=== PATIENT | male | born 1960 | race Caucasian/White ===

== ENCOUNTER 2019-03-26 08:46 | Emergency (ER) | payer MEDICAID ==
[~2019-03-26] VITALS: Ht 175.3 cm; Wt 100.0 kg
[2019-03-26] MEDS ORDERED: methylPREDNISolone sod succ 125mg/2ml vial IV ONE (09:05)
[2019-03-26] MEDS ORDERED: ipratropium/albuterol 3ml nebule NEB ONE (09:05)
[2019-03-26] MEDS ORDERED: normal saline 1000ML IV soln IVB ONE (09:05)
[2019-03-26 09:34] LABS: BASOPHILS % (AUTO) 0.5 % (0-1); EOSINOPHILS # (AUTO) 0.1 X10'3 (0-0.9); EOSINOPHILS % (AUTO) 1.3 % (0-6); HEMATOCRIT 45.6 % (42.0-52.0); HEMOGLOBIN 15.2 g/dl (14.0-17.9); LYMPHOCYTES % (AUTO) 10.8 % (21-51); MEAN CORPUSCULAR HEMOGLOBIN 31.3 PG (27.0-31.0); MEAN CORPUSCULAR HGB CONC 33.4 g/dL (33.0-36.5); MEAN CORPUSCULAR VOLUME 93.8 FL (78-98); MEAN PLATELET VOLUME 9.1 FL (7.4-10.4); MONOCYTES # (AUTO) 0.8 X10'3 (0-0.9); MONOCYTES % (AUTO) 8.3 % (2-12); NEUTROPHILS # (AUTO) 7.3 X10'3 (1.8-7.7); NEUTROPHILS % (AUTO) 79.1 % (42-75); PLATELET COUNT 253 X10'3 (140-440); RED BLOOD COUNT 4.86 X10'6 (4.70-6.10); RED CELL DISTRIBUTION WIDTH 14.4 % (11.5-14.5); WHITE BLOOD COUNT 9.3 X10'3 (4.5-11.0)
[2019-03-26] MEDS ORDERED: PRED20TA PO (09:56)
[2019-03-26] MEDS ORDERED: AMOX-419 PO (09:56)
[2019-03-26] MEDS ORDERED: ALBU6.7H9 INH (09:56)
[2019-03-26] MEDS ORDERED: GUAI120015 PO (09:56)
[2019-03-26 10:07] VITALS: BP 177/118
[2019-03-26 10:11] LABS: ALANINE AMINOTRANSFERASE 228 U/L (12-78); ALBUMIN 3.2 G/DL (3.4-5.0); ALBUMIN/GLOBULIN RATIO 0.9 (1.1-1.5); ALKALINE PHOSPHATASE 72 IU/L (46-116); ANION GAP 9 (8-16); ASPARTATE AMINO TRANSFERASE 56 U/L (10-37); BILIRUBIN,TOTAL 0.4 MG/DL (0.1-1.0); BLOOD UREA NITROGEN 32 MG/DL (7-18); BUN/CREATININE RATIO 16.7 (5.4-32.0); CALCIUM 8.8 MG/DL (8.5-10.1); CHLORIDE 108 MMOL/L (99-107); CREATININE 1.92 MG/DL (0.60-1.10); GLUCOSE 124 MG/DL (70-104); POTASSIUM 4.2 MMOL/L (3.5-5.1); SODIUM 139 MMOL/L (135-145); TOTAL CARBON DIOXIDE 22.4 MMOL/L (24-32); TOTAL PROTEIN 6.6 G/DL (6.4-8.2); eGFR 36 ML/MIN
--- NOTE | 2019-03-26 10:13 | NUR ---
Discussed pt's asymptomatic elevated BP with TOÑO Wagner; no new orders received.
== END 2019-03-26 10:22 | disposition home or self-care (01) ==
LOC: ER 08:46
DX: J20.9 Acute bronchitis, unspecified (principal); I10 Essential (primary) hypertension; Z79.899 Other long term (current) drug therapy
CPT/HCPCS: 36415; 71046; 80053; 85025; 94640; 96374; 99284; J2930; J7030; 94760

== ENCOUNTER 2019-04-12 08:12 | Inpatient (IN) | payer MEDICAID ==
[~2019-04-12] VITALS: Ht 175.3 cm; Wt 99.5 kg
[~2019-04-12 08:12] MED LIST: ALBU6.7H9 INH; GUAI120015 PO
[2019-04-12 08:53] LABS: BASOPHILS # (AUTO) 0.1 X10'3 (0-0.2); BASOPHILS % (AUTO) 0.6 % (0-1); EOSINOPHILS # (AUTO) 0.2 X10'3 (0-0.9); EOSINOPHILS % (AUTO) 1.7 % (0-6); HEMATOCRIT 47.5 % (42.0-52.0); HEMOGLOBIN 15.7 g/dl (14.0-17.9); LYMPHOCYTES % (AUTO) 11.2 % (21-51); MEAN CORPUSCULAR HEMOGLOBIN 31.2 PG (27.0-31.0); MEAN CORPUSCULAR VOLUME 94.4 FL (78-98); MEAN PLATELET VOLUME 9.6 FL (7.4-10.4); MONOCYTES # (AUTO) 0.8 X10'3 (0-0.9); MONOCYTES % (AUTO) 8.9 % (2-12); NEUTROPHILS # (AUTO) 6.9 X10'3 (1.8-7.7); NEUTROPHILS % (AUTO) 77.6 % (42-75); PLATELET COUNT 186 X10'3 (140-440); RED BLOOD COUNT 5.04 X10'6 (4.70-6.10); RED CELL DISTRIBUTION WIDTH 14.7 % (11.5-14.5); WHITE BLOOD COUNT 8.9 X10'3 (4.5-11.0)
[2019-04-12 09:02] LABS: PARTIAL THROMBOPLASTIN TIME 25 SECONDS (22-32)
[2019-04-12 09:06] LABS: ALANINE AMINOTRANSFERASE 240 U/L (12-78); ALBUMIN 3.1 G/DL (3.4-5.0); ALKALINE PHOSPHATASE 85 IU/L (46-116); ANION GAP 10 (8-16); ASPARTATE AMINO TRANSFERASE 78 U/L (10-37); BILIRUBIN,TOTAL 0.3 MG/DL (0.1-1.0); BLOOD UREA NITROGEN 39 MG/DL (7-18); BUN/CREATININE RATIO 18.5 (5.4-32.0); CALCIUM 8.4 MG/DL (8.5-10.1); CHLORIDE 109 MMOL/L (99-107); CREATININE 2.11 MG/DL (0.60-1.10); GLUCOSE 114 MG/DL (70-104); POTASSIUM 4.1 MMOL/L (3.5-5.1); SODIUM 144 MMOL/L (135-145); TOTAL CARBON DIOXIDE 24.7 MMOL/L (24-32); TOTAL PROTEIN 6.2 G/DL (6.4-8.2); eGFR 32 ML/MIN
[2019-04-12] MEDS ORDERED: furosemide 40mg/4ml inj IV ONE (09:15)
[2019-04-12] MEDS ORDERED: ondansetron/PF 4mg/2ml inj IV PRN (10:10)
[2019-04-12] MEDS ORDERED: acetaminophen 325mg tablet PO PRN ×2 (10:10)
[2019-04-12] MEDS ORDERED: HYDROcodone/acetaminophen 5mg/325mg tablet PO PRN (10:10)
[2019-04-12] MEDS ORDERED: morphine 2 MG/ML inj. syringe IV PRN ×2 (10:10)
[2019-04-12] MEDS ORDERED: magnesium hydroxide 30ml (MOM) UD suspension PO PRN (10:10)
[2019-04-12] MEDS ORDERED: mag hydrox/Alum hydrox/simeth 30ml oral suspension PO PRN (10:10)
[2019-04-12] MEDS ORDERED: HYDROcodone/acetaminophen 10/325mg tab PO PRN (10:10)
[2019-04-12] MEDS ORDERED: enoxaparin 80mg/0.8ml syringe SUBCUT ONE (11:15)
[2019-04-12] MEDS ORDERED: enoxaparin 30mg/0.3ml syringe SUBCUT ONE (11:15)
[2019-04-12 11:43] LABS: URINE AMPHETAMINE SCREEN POSITIVE (Neg); URINE BARBITUATE SCREEN NEGATIVE (Neg); URINE BENZODIAZEPINES SCREEN NEGATIVE (Neg); URINE CANNABINOID SCREEN NEGATIVE (Neg); URINE COCAINE SCREEN NEGATIVE (Neg); URINE METHADONE SCREEN NEGATIVE (Neg); URINE OPIATE SCREEN NEGATIVE (Neg); URINE PHENCYCLIDINE SCREEN NEGATIVE (Neg)
[2019-04-12] MEDS ORDERED: NO HOME MEDS (12:35)
--- NOTE | 2019-04-12 13:21 | NUR ---
Received report from YAMILE Ramsey in ED. Awaiting arrival to room 3014B.
[2019-04-12 13:40] VITALS: BP 166/102
--- NOTE | 2019-04-12 13:40 | NUR ---
Patient arrived from ED via gurney to room 3014B. Patient was able to get up off gurmona to ambulate to his bed. Patient's vital signs are pain 0/10, temp. 98F, BP 166/109, HR 104, RR 16. MD notified of high BP that was taken manually. Bed locked and lowered, nonskid socks on, call light in reach and in no acute distress.
--- NOTE | 2019-04-12 14:03 | NUR ---
Paged Dr. Dey regarding patient's manual BP. PAGER ID: [phone] MESSAGE: [id number]. Eusebio Rader. Patient's BP manually was 162/102. Thank you. Senia OVALLE x [phone]
--- NOTE | 2019-04-12 18:37 | NUR ---
Problems reprioritized. Patient report given, questions answered & plan of care reviewed with YAMILE Kirby. Patient stable at transfer of care.
--- NOTE | 2019-04-12 18:38 | NUR ---
Patient in room PCU 3018. I have received report from Senia OVALLE and had the opportunity to ask questions and assume patient care.
[2019-04-12 19:00] VITALS: BP 167/116
[2019-04-12] MEDS ORDERED: carVEDilol 3.125mg tablet PO SCH (20:00)
[2019-04-12 23:00] VITALS: BP 170/108
[2019-04-12] MEDS ORDERED: carVEDilol 3.125mg tablet PO ONE (23:20)
--- NOTE | 2019-04-12 23:22 | NUR ---
Pt BP continuing to increase, got a one time coreg 3.125 order from the MD, will continue to monitor
--- NOTE | 2019-04-13 01:01 | NUR ---
pt had an 8 run episode of V tach, pt is asymptomatic denies any SOB, dizziness, chest pain. MD ordered for K and MG levels to be checked and replaced as needed. will continue to monitor pt
[2019-04-13 01:39] LABS: BASOPHILS # (AUTO) 0.1 X10'3 (0-0.2); BASOPHILS % (AUTO) 0.7 % (0-1); EOSINOPHILS # (AUTO) 0.2 X10'3 (0-0.9); EOSINOPHILS % (AUTO) 2.7 % (0-6); HEMATOCRIT 45.6 % (42.0-52.0); HEMOGLOBIN 15.3 g/dl (14.0-17.9); LYMPHOCYTES # (AUTO) 1.4 X10'3 (1.1-4.8); LYMPHOCYTES % (AUTO) 17.7 % (21-51); MEAN CORPUSCULAR HEMOGLOBIN 31.7 PG (27.0-31.0); MEAN CORPUSCULAR HGB CONC 33.7 g/dL (33.0-36.5); MEAN CORPUSCULAR VOLUME 94.2 FL (78-98); MEAN PLATELET VOLUME 9.6 FL (7.4-10.4); MONOCYTES # (AUTO) 0.6 X10'3 (0-0.9); MONOCYTES % (AUTO) 8.4 % (2-12); NEUTROPHILS # (AUTO) 5.4 X10'3 (1.8-7.7); NEUTROPHILS % (AUTO) 70.5 % (42-75); PLATELET COUNT 165 X10'3 (140-440); RED BLOOD COUNT 4.84 X10'6 (4.70-6.10); RED CELL DISTRIBUTION WIDTH 14.7 % (11.5-14.5); WHITE BLOOD COUNT 7.6 X10'3 (4.5-11.0)
[2019-04-13 01:49] LABS: ALBUMIN 2.7 G/DL (3.4-5.0); ANION GAP 11 (8-16); BLOOD UREA NITROGEN 36 MG/DL (7-18); BUN/CREATININE RATIO 18.3 (5.4-32.0); CALCIUM 8.4 MG/DL (8.5-10.1); CHLORIDE 108 MMOL/L (99-107); CREATININE 1.97 MG/DL (0.60-1.10); GLUCOSE 102 MG/DL (70-104); MAGNESIUM 1.5 MG/DL (1.5-2.4); POTASSIUM 4.1 MMOL/L (3.5-5.1); SODIUM 144 MMOL/L (135-145); TOTAL CARBON DIOXIDE 25.5 MMOL/L (24-32); eGFR 35 ML/MIN
[2019-04-13 03:00] VITALS: BP 163/101
[2019-04-13 06:00] VITALS: BP 140/94
--- NOTE | 2019-04-13 06:16 | NUR ---
Problems reprioritized. Patient report given, questions answered & plan of care reviewed with Deonna OVALLE.
[2019-04-13] MEDS ORDERED: lisinopril 10 MG tablet PO SCH (08:00)
[2019-04-13] MEDS: nitroGLYCERIN 0.4mg/hour patch TD SCH (08:02)
[2019-04-13] MEDS: lisinopril 10 MG tablet PO SCH ×2 (08:10→19:42)
[2019-04-13] MEDS ORDERED: pneumococcal 23-VAL P-sac vacc 25 mcg/0.5ml vial IMVAC ONE (10:00)
[2019-04-13] MEDS ORDERED: FLU VACC QS2019-20 36MOS UP/PF 60 MCG/0.5 ML SYRINGE IMVAC ONE (10:00)
[2019-04-13 11:00] VITALS: BP 92/66
[2019-04-13] MEDS: furosemide 40mg/4ml inj IV SCH ×2 (11:28→16:32)
[2019-04-13 15:00] VITALS: BP 155/109
--- NOTE | 2019-04-13 15:02 | NUR ---
PAGER ID: [phone] MESSAGE: [id number] Rader PaulaGary Had 10 beat run of V-tach. No chest pain, no lightheadedness. Only complaint is SOB. BP 155/109 MAP 123. SaO2 96%. Sandro U [id number]
[2019-04-13 18:00] VITALS: BP 163/104
--- NOTE | 2019-04-13 18:20 | NUR ---
Patient states that he is Full Code not DNR. Patient is alert and oriented x4 and he makes all decisions regarding his health; charge nurse Cornel has been informed.
--- NOTE | 2019-04-13 18:20 | NUR ---
Patient in room PCU 3018B. I have received report from YAMILE Jo and had the opportunity to ask questions and assume patient care. Patient denies CP, dizziness, SOB, n/v, and rated pain 0/10.
[2019-04-13] MEDS: carVEDilol 12.5mg tablet PO SCH (19:41)
[2019-04-13 22:00] VITALS: BP 147/90
[2019-04-14] MEDS: furosemide 40mg/4ml inj IV SCH ×4 (01:38→23:50)
[2019-04-14 02:00] VITALS: BP 158/97
[2019-04-14 06:00] VITALS: BP 147/97
--- NOTE | 2019-04-14 06:18 | NUR ---
Problems reprioritized. Patient report given, questions answered & plan of care reviewed with YAMILE Jo. I informed Dr. Dey last nigh of patient's code change from DNR to Full code. Per Dr. Dey request I informed YAMILE Jo. Patient stable at shift change
--- NOTE | 2019-04-14 06:35 | NUR ---
Patient in room PCU 3018. I have received report from Valdez OVALLE and had the opportunity to ask questions and assume patient care. Valdez informed me about a code status change which I discussed with the patient during my first rounds as he was already awake. Per pt. his daughter was upset when he had informed her of his original decision to be DNR so now he would like to be a FULL code. I counseled the pt. on his code status choices and told him that the decision needs to be his. He says that he believes he's lived a good life and that is why he chose a DNR to begin with, but that he has made his decision to be a FULL code to give his daughter a chance. I will inform the day hospitalist of this conversation.
[2019-04-14 06:51] LABS: BASOPHILS # (AUTO) 0.1 X10'3 (0-0.2); BASOPHILS % (AUTO) 0.6 % (0-1); EOSINOPHILS # (AUTO) 0.2 X10'3 (0-0.9); EOSINOPHILS % (AUTO) 2.4 % (0-6); HEMATOCRIT 47.6 % (42.0-52.0); LYMPHOCYTES # (AUTO) 0.9 X10'3 (1.1-4.8); LYMPHOCYTES % (AUTO) 10.1 % (21-51); MEAN CORPUSCULAR HEMOGLOBIN 31.1 PG (27.0-31.0); MEAN CORPUSCULAR HGB CONC 33.5 g/dL (33.0-36.5); MEAN CORPUSCULAR VOLUME 92.6 FL (78-98); MEAN PLATELET VOLUME 9.8 FL (7.4-10.4); MONOCYTES # (AUTO) 0.8 X10'3 (0-0.9); MONOCYTES % (AUTO) 9.1 % (2-12); NEUTROPHILS # (AUTO) 7.2 X10'3 (1.8-7.7); NEUTROPHILS % (AUTO) 77.8 % (42-75); PLATELET COUNT 190 X10'3 (140-440); RED BLOOD COUNT 5.14 X10'6 (4.70-6.10); RED CELL DISTRIBUTION WIDTH 14.3 % (11.5-14.5); WHITE BLOOD COUNT 9.2 X10'3 (4.5-11.0)
[2019-04-14 07:08] LABS: ALBUMIN 2.8 G/DL (3.4-5.0); ANION GAP 8 (8-16); BLOOD UREA NITROGEN 36 MG/DL (7-18); BUN/CREATININE RATIO 17.4 (5.4-32.0); CALCIUM 8.5 MG/DL (8.5-10.1); CHLORIDE 104 MMOL/L (99-107); CREATININE 2.07 MG/DL (0.60-1.10); GLUCOSE 147 MG/DL (70-104); POTASSIUM 3.6 MMOL/L (3.5-5.1); SODIUM 145 MMOL/L (135-145); TOTAL CARBON DIOXIDE 33.2 MMOL/L (24-32); eGFR 33 ML/MIN
[2019-04-14 07:46] LABS: MAGNESIUM 1.5 MG/DL (1.5-2.4)
--- NOTE | 2019-04-14 08:07 | NUR ---
PAGER ID: [phone] MESSAGE: [id number] Paula Rader. Had 7 beat run of V-tach. Electrolytes within normal limits. Has had 3 other episodes of V-tach runs the past 48hrs. Patient asymptomatic each time. Wants to change code status to FULL. Sandro [id number]
[2019-04-14] MEDS: lisinopril 10 MG tablet PO SCH ×2 (08:15→20:29)
[2019-04-14] MEDS: carVEDilol 12.5mg tablet PO SCH ×2 (08:16→20:28)
[2019-04-14] MEDS: nitroGLYCERIN 0.4mg/hour patch TD SCH (08:16)
--- NOTE | 2019-04-14 10:57 | NUR ---
PAGER ID: [phone] MESSAGE: [id number] Sancho Rader code status changed to FULL. Pls. advise. Sandro [facility] [id number]
[2019-04-14 11:00] VITALS: BP 114/75
[2019-04-14 15:00] VITALS: BP 159/93
--- NOTE | 2019-04-14 15:40 | NUR ---
Called Hilda Summers from [facility]. Obtained required documentation and faxed to provided fax number. Per Hilda, life vest should be ready by 04/16/19Tuesday, maybe even as early as tomorrow. Documents placed in chart.
--- NOTE | 2019-04-14 18:42 | NUR ---
Problems reprioritized. Patient report given, questions answered & plan of care reviewed with Trisha OVALLE.
[2019-04-14 19:00] VITALS: BP 135/102
[2019-04-14 23:00] VITALS: BP 154/104
[2019-04-15 03:00] VITALS: BP 154/107
[2019-04-15 06:15] LABS: BASOPHILS # (AUTO) 0.1 X10'3 (0-0.2); BASOPHILS % (AUTO) 0.7 % (0-1); EOSINOPHILS # (AUTO) 0.3 X10'3 (0-0.9); EOSINOPHILS % (AUTO) 3.3 % (0-6); HEMATOCRIT 50.9 % (42.0-52.0); HEMOGLOBIN 17.4 g/dl (14.0-17.9); LYMPHOCYTES # (AUTO) 1.3 X10'3 (1.1-4.8); LYMPHOCYTES % (AUTO) 15.2 % (21-51); MEAN CORPUSCULAR HGB CONC 34.2 g/dL (33.0-36.5); MEAN CORPUSCULAR VOLUME 93.6 FL (78-98); MEAN PLATELET VOLUME 9.1 FL (7.4-10.4); MONOCYTES # (AUTO) 1.3 X10'3 (0-0.9); MONOCYTES % (AUTO) 14.8 % (2-12); NEUTROPHILS # (AUTO) 5.6 X10'3 (1.8-7.7); PLATELET COUNT 197 X10'3 (140-440); RED BLOOD COUNT 5.44 X10'6 (4.70-6.10); RED CELL DISTRIBUTION WIDTH 14.1 % (11.5-14.5); WHITE BLOOD COUNT 8.5 X10'3 (4.5-11.0)
--- NOTE | 2019-04-15 06:25 | NUR ---
Patient in room PCU 3018. I have received report from Trisha OVALLE and had the opportunity to ask questions and assume patient care.
[2019-04-15 06:30] VITALS: BP 148/98
[2019-04-15 06:35] LABS: ALBUMIN 2.9 G/DL (3.4-5.0); ANION GAP 6 (8-16); BLOOD UREA NITROGEN 34 MG/DL (7-18); BUN/CREATININE RATIO 17.1 (5.4-32.0); CALCIUM 8.9 MG/DL (8.5-10.1); CHLORIDE 104 MMOL/L (99-107); CREATININE 1.99 MG/DL (0.60-1.10); GLUCOSE 110 MG/DL (70-104); POTASSIUM 3.7 MMOL/L (3.5-5.1); SODIUM 147 MMOL/L (135-145); TOTAL CARBON DIOXIDE 37.2 MMOL/L (24-32); eGFR 34 ML/MIN
[2019-04-15] MEDS: carVEDilol 12.5mg tablet PO SCH (07:53)
[2019-04-15] MEDS: lisinopril 10 MG tablet PO SCH (07:54)
[2019-04-15] MEDS: furosemide 40mg/4ml inj IV SCH (07:54)
[2019-04-15] MEDS: nitroGLYCERIN 0.4mg/hour patch TD SCH (08:00)
[2019-04-15 11:00] VITALS: BP 135/81
[2019-04-15] MEDS ORDERED: FURO40TA4 PO (13:24)
[2019-04-15] MEDS ORDERED: CARV-50 PO (13:24)
[2019-04-15] MEDS ORDERED: NITR0.4T51 SL (13:24)
[2019-04-15] MEDS ORDERED: LISI10TA4 PO (13:24)
--- NOTE | 2019-04-15 14:18 | NUR ---
Patient was cleared to discharge home. MD made aware that the patient does not have a primary physician or a sandwich counter attendant following for f/u appointment. MD stated the patient needed to find a primary for a referral to a sandwich counter attendant. 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 MD stated he does not need a life vest. PIV and tele DC'd. Patient verbalized understanding regarding discharge instructions and sobriety. Patient denies dyspnea and ambulated around the room without dyspnea. Patient left in stable condition.
--- NOTE | 2019-04-15 14:35 | NUR ---
Patient called stating that their pharmacy is closed. All prescriptions called into [facility] on [address].
[2019-04-15] MEDS ORDERED: lisinopril 10 MG tablet PO SCH (20:00)
[2019-04-15] MEDS ORDERED: carVEDilol 12.5mg tablet PO SCH (20:00)
--- NOTE | 2019-04-17 16:22 | NUR ---
Case management discharge phone call follow up Left voicemail to please return call [phone]
== END 2019-04-15 14:01 | disposition home or self-care (01) | DRG 194 ==
LOC: ER 08:13 → ED HOLD 10:10 → PCU 3S 13:40
PROVIDERS: ADMIT Internal Medicine; ATTEND Internal Medicine
PROC: 3E02340 Introduction of Influenza Vaccine into Muscle, Percutaneous Approach (ICD-10-PCS; principal; 2019-04-13)
PROC: 3E0234Z Introduction of Serum, Toxoid and Vaccine into Muscle, Percutaneous Approach (ICD-10-PCS; 2019-04-13)
DX: I50.23 Acute on chronic systolic (congestive) heart failure (principal); N17.9 Acute kidney failure, unspecified; I27.20 Pulmonary hypertension, unspecified; N18.3 Chronic kidney disease, stage 3 (moderate); F15.90 Other stimulant use, unspecified, uncomplicated; F12.90 Cannabis use, unspecified, uncomplicated; R74.0 Nonspecific elevation of levels of transaminase and lactic acid dehydrogenase [LDH]; R03.0 Elevated blood-pressure reading, without diagnosis of hypertension; Z66 Do not resuscitate; Z83.3 Family history of diabetes mellitus; Z87.891 Personal history of nicotine dependence; Z23 Encounter for immunization; Z59.0 Homelessness; Z71.51 Drug abuse counseling and surveillance of drug abuser
CPT/HCPCS: 36415; 71045; 80048; 80053; 80305; 82948; 83735; 83880; 84132; 84484; 85025; 85610; 85730; 87081; 90732; 93005; 93306; 96374; 99285; G0378; J1650; J1940; Q2037

== ENCOUNTER 2020-02-12 17:13 | Inpatient (IN) | payer MEDICAID ==
[~2020-02-12] VITALS: Ht 175.3 cm; Wt 91.2 kg
[~2020-02-12 17:13] MED LIST changes: -ALBU6.7H9 INH; +CARV-50 PO; -GUAI120015 PO; +LISI10TA4 PO
[2020-02-12] MEDS ORDERED: furosemide 10 MG/1 ML 10ml inj IV ONE (17:30)
[2020-02-12] MEDS ORDERED: aspirin 81mg tab.chew PO ONE (17:30)
[2020-02-12] MEDS ORDERED: nitroGLYCERIN 0.4mg SUBLingual tab SL PRN (17:30)
[2020-02-12 17:49] LABS: BASOPHILS % (AUTO) 0.3 % (0-1); EOSINOPHILS # (AUTO) 0.2 X10'3 (0-0.9); EOSINOPHILS % (AUTO) 1.7 % (0-6); HEMATOCRIT 45.3 % (42.0-52.0); HEMOGLOBIN 14.8 g/dl (14.0-17.9); LYMPHOCYTES % (AUTO) 10.4 % (21-51); MEAN CORPUSCULAR HGB CONC 32.8 g/dL (33.0-36.5); MEAN CORPUSCULAR VOLUME 97.6 FL (78-98); MEAN PLATELET VOLUME 8.6 FL (7.4-10.4); MONOCYTES # (AUTO) 0.6 X10'3 (0-0.9); MONOCYTES % (AUTO) 6.4 % (2-12); NEUTROPHILS # (AUTO) 7.5 X10'3 (1.8-7.7); NEUTROPHILS % (AUTO) 81.2 % (42-75); PLATELET COUNT 315 X10'3 (140-440); RED BLOOD COUNT 4.64 X10'6 (4.70-6.10); RED CELL DISTRIBUTION WIDTH 13.7 % (11.5-14.5); WHITE BLOOD COUNT 9.2 X10'3 (4.5-11.0)
[2020-02-12 18:06] LABS: D-DIMER 0.78 MG/L FEU (0-0.50)
[2020-02-12 18:09] LABS: ALANINE AMINOTRANSFERASE 46 U/L (12-78); ALBUMIN 2.6 G/DL (3.4-5.0); ALBUMIN/GLOBULIN RATIO 0.7 (1.1-1.5); ALKALINE PHOSPHATASE 86 IU/L (46-116); ANION GAP 8 (8-16); ASPARTATE AMINO TRANSFERASE 21 U/L (10-37); BILIRUBIN,TOTAL 0.4 MG/DL (0.1-1.0); BLOOD UREA NITROGEN 28 MG/DL (7-18); BUN/CREATININE RATIO 13.6 (5.4-32.0); CALCIUM 8.6 MG/DL (8.5-10.1); CHLORIDE 108 MMOL/L (99-107); CREATININE 2.06 MG/DL (0.60-1.10); GLUCOSE 151 MG/DL (70-104); POTASSIUM 4.4 MMOL/L (3.5-5.1); SODIUM 144 MMOL/L (135-145); TOTAL CARBON DIOXIDE 27.6 MMOL/L (24-32); TOTAL PROTEIN 6.6 G/DL (6.4-8.2); eGFR 33 ML/MIN
[2020-02-12] MEDS ORDERED: nitroGLYCERIN 1gm ointment UD TP ONE (18:35)
[2020-02-12] MEDS ORDERED: heparin 10,000 units/1 ML INJ IV ONE ×2 (18:35→18:50)
[2020-02-12] MEDS ORDERED: CefTRIAXone 2gm/D5W 50ml BAG 50 ML IV ONE (18:50)
[2020-02-12] MEDS ORDERED: azithromycin/NS 500mg/250ml 250 ML IV ONE (18:50)
--- NOTE | 2020-02-12 18:59 | NUR ---
pt resting in bed, vitals taken
[2020-02-12] MEDS: heparin 25,000 UNIT/250ml bag 250 ML IV SCH (19:11)
[2020-02-12] MEDS ORDERED: bisacodyl 10mg suppository rectal RC PRN (19:15)
[2020-02-12] MEDS ORDERED: HYDROcodone/acetaminophen 5mg/325mg tablet PO PRN (19:15)
[2020-02-12] MEDS ORDERED: magnesium 4gm in 100ml NS 100 ML IV PRN (19:15)
[2020-02-12] MEDS ORDERED: mag hydrox/Alum hydrox/simeth 30ml oral suspension PO PRN (19:15)
[2020-02-12] MEDS ORDERED: heparin 10,000 units/1 ML INJ IV PRN (19:15)
[2020-02-12] MEDS ORDERED: magnesium 2GM in 50ml NS 50 ML IV PRN (19:15)
[2020-02-12] MEDS ORDERED: magnesium hydroxide 30ml (MOM) UD suspension PO PRN (19:15)
[2020-02-12] MEDS ORDERED: ondansetron/PF 4mg/2ml inj IV PRN (19:15)
[2020-02-12] MEDS ORDERED: acetaminophen 325mg tablet PO PRN (19:15)
[2020-02-12] MEDS ORDERED: potassium CL 10mEq/100ml bag 100 ML IV PRN ×2 (19:15)
[2020-02-12] MEDS ORDERED: potassium Cl 20 mEq SR tablet PO PRN ×2 (19:15)
[2020-02-12] MEDS ORDERED: magnesium Cl slow-release 64mg tablet PO PRN (19:15)
[2020-02-12] MEDS ORDERED: heparin 25,000 UNIT/250ml bag 250 ML IV SCH (19:15)
[2020-02-12 19:32] LABS: CLARITY,URINE CLEAR (Clear); COLOR,URINE YELLOW (Yellow); GLUCOSE, URINE NEGATIVE (Neg); KETONES,URINE NEGATIVE (Neg); LEUKOCYTE ESTERASE ,URINE NEGATIVE (Neg); NITRITES, URINE NEGATIVE (Neg); OCCULT BLOOD,URINE NEGATIVE (Neg); PH,URINE 5.5 (4.8-8.0); PROTEIN,URINE NEGATIVE (Neg); UROBILINOGEN,URINE 0.2 E.U/dL (0.2-1.0)
[2020-02-12 19:33] LABS: UA COLLECTION TYPE CLN CATCH MIDSTREAM
[2020-02-12] MEDS ORDERED: NO HOME MEDS (19:36)
[2020-02-12 19:50] LABS: URINE AMPHETAMINE SCREEN NEGATIVE (Neg); URINE BARBITUATE SCREEN NEGATIVE (Neg); URINE BENZODIAZEPINES SCREEN NEGATIVE (Neg); URINE CANNABINOID SCREEN NEGATIVE (Neg); URINE COCAINE SCREEN NEGATIVE (Neg); URINE METHADONE SCREEN NEGATIVE (Neg); URINE OPIATE SCREEN NEGATIVE (Neg); URINE PHENCYCLIDINE SCREEN NEGATIVE (Neg)
--- NOTE | 2020-02-12 20:10 | NUR ---
Received report from YAMILE Schmidt. Awaiting patient arrival to the unit.
[2020-02-12 20:35] VITALS: BP 151/104
[2020-02-12] MEDS: K and/or MAG REPLACEMENT MC SCH (21:25)
[2020-02-12 22:00] VITALS: BP 132/87
[2020-02-13 02:00] VITALS: BP 134/84
[2020-02-13] MEDS: heparin 10,000 units/1 ML INJ IV PRN ×2 (02:02→16:23)
[2020-02-13] MEDS: heparin 25,000 UNIT/250ml bag 250 ML IV SCH ×2 (02:03→16:21)
--- NOTE | 2020-02-13 06:14 | NUR ---
Problems reprioritized. Patient report given, questions answered & plan of care reviewed with YAMILE Garcia.
[2020-02-13 06:23] LABS: BASOPHILS % (AUTO) 0.5 % (0-1); EOSINOPHILS # (AUTO) 0.2 X10'3 (0-0.9); EOSINOPHILS % (AUTO) 2.6 % (0-6); HEMOGLOBIN 14.2 g/dl (14.0-17.9); LYMPHOCYTES # (AUTO) 1.4 X10'3 (1.1-4.8); LYMPHOCYTES % (AUTO) 16.4 % (21-51); MEAN CORPUSCULAR HEMOGLOBIN 31.5 PG (27.0-31.0); MEAN CORPUSCULAR HGB CONC 32.9 g/dL (33.0-36.5); MEAN CORPUSCULAR VOLUME 95.7 FL (78-98); MEAN PLATELET VOLUME 8.7 FL (7.4-10.4); MONOCYTES # (AUTO) 0.6 X10'3 (0-0.9); MONOCYTES % (AUTO) 7.8 % (2-12); NEUTROPHILS % (AUTO) 72.7 % (42-75); PLATELET COUNT 250 X10'3 (140-440); RED CELL DISTRIBUTION WIDTH 13.6 % (11.5-14.5); WHITE BLOOD COUNT 8.3 X10'3 (4.5-11.0)
[2020-02-13 06:31] LABS: ALANINE AMINOTRANSFERASE 39 U/L (12-78); ALBUMIN 2.5 G/DL (3.4-5.0); ALBUMIN/GLOBULIN RATIO 0.7 (1.1-1.5); ALKALINE PHOSPHATASE 55 IU/L (46-116); ANION GAP 8 (8-16); ASPARTATE AMINO TRANSFERASE 19 U/L (10-37); BILIRUBIN,TOTAL 0.4 MG/DL (0.1-1.0); BLOOD UREA NITROGEN 26 MG/DL (7-18); CALCIUM 8.8 MG/DL (8.5-10.1); CHLORIDE 109 MMOL/L (99-107); CREATININE 1.86 MG/DL (0.60-1.10); GLUCOSE 113 MG/DL (70-104); POTASSIUM 3.9 MMOL/L (3.5-5.1); SODIUM 144 MMOL/L (135-145); TOTAL CARBON DIOXIDE 26.8 MMOL/L (24-32); eGFR 37 ML/MIN
[2020-02-13 06:34] LABS: MAGNESIUM 1.6 MG/DL (1.5-2.4)
[2020-02-13 07:30] VITALS: BP 154/100
[2020-02-13] MEDS: K and/or MAG REPLACEMENT MC SCH ×2 (08:00→20:00)
[2020-02-13] MEDS: CefTRIAXone/D5W-Rocephin 1gm 50 ML IV SCH (08:13)
[2020-02-13] MEDS: furosemide 40mg/4ml inj IV SCH ×2 (08:13→21:39)
[2020-02-13] MEDS ORDERED: FLU VACC QS2020-21(6MOS UP)/PF 60 MCG/0.5 ML SYRINGE IMVAC ONE (10:00)
[2020-02-13] MEDS: azithromycin/NS 500mg/250ml 250 ML IV SCH (10:49)
[2020-02-13 11:30] VITALS: BP 128/79
[2020-02-13 12:32] LABS: CHOL/HDL RATIO 3.4 (0.00-4.99); CHOLESTEROL 165 MG/DL (0-200); HDL CHOLESTEROL 48 MG/DL (35-60); LDL CHOLESTEROL 111 MG/DL (50-100); TRIGLYCERIDES 82 MG/DL (20-135)
[2020-02-13 15:10] VITALS: BP 128/76
[2020-02-13 18:00] VITALS: BP 132/74
--- NOTE | 2020-02-13 18:30 | NUR ---
Problems reprioritized. Patient report given, questions answered & plan of care reviewed with Abby RN.
[2020-02-13] MEDS: metoprolol tartrate 12.5mg (1/2 tablet) PO SCH (21:38)
[2020-02-13 22:00] VITALS: BP 148/106
[2020-02-14 02:00] VITALS: BP 142/96
--- NOTE | 2020-02-14 03:00 | NUR ---
Notified of run of V tach. patient resting with no c/o chest pain.
[2020-02-14 06:00] VITALS: BP 120/81
[2020-02-14 06:23] LABS: BASOPHILS # (AUTO) 0.1 X10'3 (0-0.2); BASOPHILS % (AUTO) 0.7 % (0-1); EOSINOPHILS # (AUTO) 0.2 X10'3 (0-0.9); EOSINOPHILS % (AUTO) 2.7 % (0-6); HEMATOCRIT 45.1 % (42.0-52.0); HEMOGLOBIN 14.9 g/dl (14.0-17.9); LYMPHOCYTES # (AUTO) 1.7 X10'3 (1.1-4.8); LYMPHOCYTES % (AUTO) 20.5 % (21-51); MEAN CORPUSCULAR HEMOGLOBIN 31.4 PG (27.0-31.0); MEAN CORPUSCULAR HGB CONC 33.1 g/dL (33.0-36.5); MEAN CORPUSCULAR VOLUME 94.9 FL (78-98); MEAN PLATELET VOLUME 8.7 FL (7.4-10.4); MONOCYTES # (AUTO) 0.8 X10'3 (0-0.9); MONOCYTES % (AUTO) 9.2 % (2-12); NEUTROPHILS # (AUTO) 5.6 X10'3 (1.8-7.7); NEUTROPHILS % (AUTO) 66.9 % (42-75); PLATELET COUNT 260 X10'3 (140-440); RED BLOOD COUNT 4.75 X10'6 (4.70-6.10); RED CELL DISTRIBUTION WIDTH 13.5 % (11.5-14.5); WHITE BLOOD COUNT 8.4 X10'3 (4.5-11.0)
[2020-02-14 06:38] LABS: PARTIAL THROMBOPLASTIN TIME 55 SECONDS (22-32)
[2020-02-14 06:40] LABS: ALANINE AMINOTRANSFERASE 35 U/L (12-78); ALBUMIN 2.5 G/DL (3.4-5.0); ALBUMIN/GLOBULIN RATIO 0.7 (1.1-1.5); ALKALINE PHOSPHATASE 53 IU/L (46-116); ANION GAP 8 (8-16); ASPARTATE AMINO TRANSFERASE 17 U/L (10-37); BILIRUBIN,TOTAL 0.4 MG/DL (0.1-1.0); BLOOD UREA NITROGEN 27 MG/DL (7-18); BUN/CREATININE RATIO 14.8 (5.4-32.0); CALCIUM 9.1 MG/DL (8.5-10.1); CHLORIDE 107 MMOL/L (99-107); CREATININE 1.83 MG/DL (0.60-1.10); GLUCOSE 101 MG/DL (70-104); MAGNESIUM 1.8 MG/DL (1.5-2.4); POTASSIUM 4.1 MMOL/L (3.5-5.1); SODIUM 144 MMOL/L (135-145); TOTAL CARBON DIOXIDE 28.8 MMOL/L (24-32); TOTAL PROTEIN 6.3 G/DL (6.4-8.2); eGFR 38 ML/MIN
--- NOTE | 2020-02-14 07:03 | NUR ---
Patient in room PCU 3018. I have received report from YAMILE Mora and had the opportunity to ask questions and assume patient care.
[2020-02-14] MEDS: K and/or MAG REPLACEMENT MC SCH ×2 (08:00→19:18)
[2020-02-14] MEDS: CefTRIAXone/D5W-Rocephin 1gm 50 ML IV SCH (09:00)
[2020-02-14] MEDS: furosemide 40mg/4ml inj IV SCH ×2 (09:04→19:10)
[2020-02-14] MEDS: aspirin 81mg tablet.DR PO SCH (09:10)
[2020-02-14] MEDS: metoprolol tartrate 12.5mg (1/2 tablet) PO SCH ×2 (09:11→19:10)
[2020-02-14] MEDS: azithromycin/NS 500mg/250ml 250 ML IV SCH (09:46)
[2020-02-14 11:00] VITALS: BP 121/89
[2020-02-14 15:00] VITALS: BP 136/99
[2020-02-14] MEDS: heparin 25,000 UNIT/250ml bag 250 ML IV SCH (17:33)
--- NOTE | 2020-02-14 18:10 | NUR ---
Problems reprioritized. Patient report given, questions answered & plan of care reviewed with YAMILE Griffin. Pt has been resting comfortably. No c/o pain or discomfort.
[2020-02-14] MEDS: lactobacillus rhamnosus 10,000 MMU CELLS/CAPSULE PO SCH (19:10)
[2020-02-14] MEDS: heparin 10,000 units/1 ML INJ IV PRN (19:11)
[2020-02-14 22:30] VITALS: BP 127/96
[2020-02-15 02:00] VITALS: BP 138/85
--- NOTE | 2020-02-15 02:51 | NUR ---
34 beat run of V tach. patient resting quietly. states that he didnt feel anything at this time. notified. Addendum: 02/15/20 at 0256 by Gaby Ann RN PAGER ID: [phone] MESSAGE: patient in 3018 had another run of Vtach (34 beats). so signs or symptoms. patient states he didn't feel anything gaby [id number]
--- NOTE | 2020-02-15 06:20 | NUR ---
Patient in room PCU 3018. I have received report from YAMILE Griffin and had the opportunity to ask questions and assume patient care.
--- NOTE | 2020-02-15 06:29 | NUR ---
Problems reprioritized. Patient report given, questions answered & plan of care reviewed with YAMILE Feliz.
[2020-02-15 06:30] VITALS: BP 116/85
[2020-02-15 06:31] LABS: BASOPHILS % (AUTO) 0.7 % (0-1); EOSINOPHILS # (AUTO) 0.2 X10'3 (0-0.9); EOSINOPHILS % (AUTO) 3.3 % (0-6); HEMATOCRIT 46.6 % (42.0-52.0); HEMOGLOBIN 15.5 g/dl (14.0-17.9); LYMPHOCYTES # (AUTO) 1.4 X10'3 (1.1-4.8); LYMPHOCYTES % (AUTO) 19.1 % (21-51); MEAN CORPUSCULAR HEMOGLOBIN 31.7 PG (27.0-31.0); MEAN CORPUSCULAR HGB CONC 33.2 g/dL (33.0-36.5); MEAN CORPUSCULAR VOLUME 95.4 FL (78-98); MEAN PLATELET VOLUME 9.1 FL (7.4-10.4); MONOCYTES # (AUTO) 0.6 X10'3 (0-0.9); MONOCYTES % (AUTO) 8.5 % (2-12); NEUTROPHILS # (AUTO) 5.1 X10'3 (1.8-7.7); NEUTROPHILS % (AUTO) 68.4 % (42-75); PLATELET COUNT 242 X10'3 (140-440); RED BLOOD COUNT 4.89 X10'6 (4.70-6.10); RED CELL DISTRIBUTION WIDTH 13.4 % (11.5-14.5); WHITE BLOOD COUNT 7.5 X10'3 (4.5-11.0)
[2020-02-15 06:51] LABS: ALANINE AMINOTRANSFERASE 36 U/L (12-78); ALBUMIN 2.6 G/DL (3.4-5.0); ALBUMIN/GLOBULIN RATIO 0.7 (1.1-1.5); ALKALINE PHOSPHATASE 51 IU/L (46-116); ANION GAP 7 (8-16); ASPARTATE AMINO TRANSFERASE 19 U/L (10-37); BILIRUBIN,TOTAL 0.4 MG/DL (0.1-1.0); BLOOD UREA NITROGEN 26 MG/DL (7-18); BUN/CREATININE RATIO 13.1 (5.4-32.0); CALCIUM 9.3 MG/DL (8.5-10.1); CHLORIDE 106 MMOL/L (99-107); CREATININE 1.99 MG/DL (0.60-1.10); GLUCOSE 96 MG/DL (70-104); MAGNESIUM 1.8 MG/DL (1.5-2.4); POTASSIUM 3.8 MMOL/L (3.5-5.1); SODIUM 142 MMOL/L (135-145); TOTAL CARBON DIOXIDE 28.9 MMOL/L (24-32); TOTAL PROTEIN 6.5 G/DL (6.4-8.2); eGFR 34 ML/MIN
[2020-02-15] MEDS: K and/or MAG REPLACEMENT MC SCH (07:00)
[2020-02-15] MEDS: CefTRIAXone/D5W-Rocephin 1gm 50 ML IV SCH (07:41)
[2020-02-15 07:42] VITALS: BP_SYST 116
[2020-02-15] MEDS: lactobacillus rhamnosus 10,000 MMU CELLS/CAPSULE PO SCH (07:42)
[2020-02-15] MEDS: metoprolol tartrate 12.5mg (1/2 tablet) PO SCH (07:42)
[2020-02-15] MEDS: furosemide 40mg/4ml inj IV SCH (07:42)
[2020-02-15] MEDS: aspirin 81mg tablet.DR PO SCH (07:42)
[2020-02-15] MEDS: heparin 25,000 UNIT/250ml bag 250 ML IV SCH (07:48)
[2020-02-15] MEDS: azithromycin/NS 500mg/250ml 250 ML IV SCH (08:50)
[2020-02-15] MEDS ORDERED: FURO-150 PO (11:41)
[2020-02-15] MEDS ORDERED: LISI-604 PO (11:41)
[2020-02-15] MEDS ORDERED: metoprolol tartrate tablet PO (11:41)
[2020-02-15] MEDS ORDERED: ATOR40TA PO (11:41)
[2020-02-15] MEDS ORDERED: ASPI81TA30 PO (11:41)
--- NOTE | 2020-02-15 14:15 | NUR ---
DC inst provided to pt. IV x2 DC'd, tips intact. All belongings sent w/pt. WC to front lobby.
[2020-02-15] MEDS ORDERED: CEFD300C3 PO (17:05)
== END 2020-02-15 14:12 | disposition home or self-care (01) | DRG 139 ==
LOC: ER 17:13 → ED HOLD 19:11 → PCU 3S 20:21
PROVIDERS: ADMIT Family Medicine; ATTEND Family Medicine
DX: J18.9 Pneumonia, unspecified organism (principal); I21.4 Non-ST elevation (NSTEMI) myocardial infarction; I50.23 Acute on chronic systolic (congestive) heart failure; N17.9 Acute kidney failure, unspecified; N18.9 Chronic kidney disease, unspecified; Z20.828 Contact with and (suspected) exposure to other viral communicable diseases; F12.90 Cannabis use, unspecified, uncomplicated; I13.0 Hypertensive heart and chronic kidney disease with heart failure and stage 1 through stage 4 chronic kidney disease, or unspecified chronic kidney disease; Z23 Encounter for immunization
CPT/HCPCS: 36415; 71045; 71250; 78582; 80053; 80061; 80305; 81003; 83735; 83880; 84484; 85025; 85379; 85730; 87081; 87635; 93005; 93306; 93308; 93970; 96374; 96375; 99291; A9539; A9540; G0378; J0456; J0696; J1644; J1940; Q2039

== ENCOUNTER 2022-09-19 16:31 | Emergency (ER) | payer MEDICAID ==
[~2022-09-19] VITALS: Ht 175.3 cm; Wt 87.4 kg
[~2022-09-19 16:31] MED LIST changes: -CARV-50 PO; -LISI10TA4 PO; +LISI5TAB22 PO; +metoprolol tartrate tablet PO
[2022-09-19 16:52] VITALS: BP 124/80
[2022-09-19] MEDS ORDERED: TETanus/Pertussis (Acell)/Diphther VAC/PF (Tdap-Adult) 0.5ml syringe IMVAC ONE (17:05)
[2022-09-19] MEDS ORDERED: bacitracin 15gm ointment TP ONE (18:10)
== END 2022-09-19 18:49 | disposition home or self-care (01) ==
LOC: ER 16:35
DX: S91.332A Puncture wound without foreign body, left foot, initial encounter (principal); F12.10 Cannabis abuse, uncomplicated; F15.10 Other stimulant abuse, uncomplicated; N18.4 Chronic kidney disease, stage 4 (severe); Z87.81 Personal history of (healed) traumatic fracture; X58.XXXA Exposure to other specified factors, initial encounter; Y93.89 Activity, other specified; Y92.89 Other specified places as the place of occurrence of the external cause; Y99.8 Other external cause status
CPT/HCPCS: 73630; 90471; 90715; 99283

== ENCOUNTER 2023-08-17 11:55 | Outpatient (CLI) | payer MEDICAID | END 2023-08-17 23:59 | disposition home or self-care (01) | LOC: RAD 11:55 | PROVIDERS: ATTEND Family Medicine | DX: S62.525A Nondisplaced fracture of distal phalanx of left thumb, initial encounter for closed fracture (principal); M77.51 Other enthesopathy of right foot and ankle; M25.442 Effusion, left hand; M79.89 Other specified soft tissue disorders; M79.671 Pain in right foot; X58.XXXA Exposure to other specified factors, initial encounter; Y93.89 Activity, other specified; Y92.89 Other specified places as the place of occurrence of the external cause; Y99.8 Other external cause status | CPT/HCPCS: 73130; 73630 ==